=== PATIENT | female | born 1970 | race Caucasian/White ===

== ENCOUNTER 2017-12-31 14:33 | Emergency (ER) | payer OTHER ==
--- NOTE | 2017-12-31 15:45 | UC ---
Throat Pain/Nasal Wes HPI - HPI Summary HPI Summary: 47 y/o male presents to the urgent care c/o RT side sore throat and RT ear pain for the past 3 days. Pain w/ swallowing is 8/10. First day of symptoms she had body aches and cold sweats. Pt denies fever, SOB, cough, URI, chest pain, abdominal pain, N/V/D. Pt has multiple ABX allergies. Pt has no taking anything to alleviate symptoms. - History of Current Complaint Stated Complaint: RIGHT EAR,SORE THROAT Time Seen by Provider: 12/31/17 15:43 Hx Obtained From: Patient Hx Last Menstrual Period: ~2013 ?: No Onset/Duration: Gradual Onset, Lasting Days - 3 days, Still Present, Worse Since - yesterday Severity: Moderate Pain Intensity: 8 Pain Scale Used: 0-10 Numeric Cough: None Associated Signs & Symptoms: Positive: Dysphagia, Other - RT ear pain - Epiglottits Risk Factors Epiglottis Risk Factors: Negative - Allergies/Home Medications Allergies/Adverse Reactions: Allergies Allergy/AdvReac Type Severity Reaction Status Date / Time MS Aspirin [Aspirin] Allergy Swelling Verified 12/31/17 15:46 Of Face,Lips,& Throat, Difficulty Breathing MS Cephalexin [From Keflex] Allergy Difficulty Verified 12/31/17 15:46 Breathing MS Ibuprofen [Ibuprofen] Allergy Swelling Verified 12/31/17 15:46 Of Face,Lips,& Throat, Difficulty Breathing MS Iodinated Diagnostic Allergy Unknown Verified 12/31/17 15:46 Agents Reaction [Iodinated Diagnostic Agents] Details MS Latex [Latex] Allergy Rash Verified 12/31/17 15:46 MS Penicillins [Penicillins] Allergy Unknown Verified 12/31/17 15:46 Reaction Details sulfamethoxazole Allergy Shortness Verified 12/31/17 15:47 [From Bactrim] of Breath trimethoprim [From Bactrim] Allergy Shortness Verified 12/31/17 15:47 of Breath Home Medications: Home Medications Acetaminophen TAB* [Tylenol TAB*] 500 mg PO Q4H PRN 12/31/17 [History Confirmed 12/31/17] Buprenorphine/Naloxone SL TAB* [Suboxone 8-2 mg SL TAB*] 2 tab.sl SL DAILY 12/31 [History Confirmed 12/31/17] PMH/Surg Hx/FS Hx/Imm Hx Previously Healthy: Yes Cardiovascular History: Hypertension Respiratory History: Asthma Neurological History: Migraine Other History Of: Hepatitis C - Surgical History Surgical History: Yes Surgery Procedure, Year, and Place: Hysterectomy, 2013, [place]; C-Sections, 2000 2003 2004; Cholecystectomy, 2000; Appendectomy, 1979 - Family History Known Family History: Positive: Cardiac Disease, Hypertension, Diabetes - Social History Occupation: Employed Full-time Lives: With Family Alcohol Use: None Substance Use Type: None Smoking Status (MU): Never Smoked Tobacco - Immunization History Most Recent Influenza Vaccination: Not the Season Review of Systems Constitutional: Chills, Fatigue, Other - body aches Skin: Negative Eyes: Negative ENT: Sore Throat, Ear Ache - RT ear pain Respiratory: Negative Cardiovascular: Negative Gastrointestinal: Negative Genitourinary: Negative Motor: Negative Neurovascular: Negative Musculoskeletal: Negative Neurological: Negative Psychological: Negative Is Patient Immunocompromised?: No All Other Systems Reviewed And Are Negative: Yes Physical Exam - Summary Physical Exam Summary: VITAL SIGNS: Reviewed. GENERAL: Patient is a well developed and nourished female who is sitting comfortable in the examining table. Patient is not in any acute respiratory distress. HEAD AND FACE: No signs of trauma. No ecchymosis, hematomas or skull depressions. No sinus tenderness. EYES: PERRLA, EOMI x 2, No injected conjunctiva, no nystagmus. No photophobia. EARS: Hearing grossly intact. RT ear canl clear, RT TM injected w/ erythema and yellowish discharge. Left external ear canal clear, LF TM WNL. MOUTH: Positive pharynx with erythema, no exudates, palatal petechiae. B/L tonsillar enlargement with no exudate. Uvula in midline. NECK: Supple, trachea is midline, Positive anterior cervical lymphadenopathy, no JVD, no carotid bruit, no c-spine tenderness, neck with full ROM. No meningeal signs, no Kernig's or brudzinskis signs. CHEST: Symmetric, no tenderness at palpation LUNGS: Clear to auscultation bilaterally. No wheezing or crackles. CVS: Regular rate and rhythm, S1 and S2 present, no murmurs or gallops appreciated. ABDOMEN: Soft, non-tender. No signs of distention. No rebound no guarding, and no masses palpated. Bowel sounds are normal. EXTREMITIES: FROM in all major joints, no edema, no cyanosis or clubbing. NEURO: Alert and oriented x 3. No acute neurological deficits. Speech is normal and follows commands. SKIN: Dry and warm Triage Information Reviewed: Yes Throat Pain/Nasal Course/Dx - Course Course Of Treatment: 47 y/o male presents to the urgent care c/o RT side sore throat and RT ear pain for the past 3 days. Pain w/ swallowing is 8/10. First day of symptoms she had body aches and cold sweats. Pt denies fever, SOB, cough , URI, chest pain, abdominal pain, N/V/D. Pt has multiple ABX allergies. Pt has no taking anything to alleviate symptoms.Hx obtained. Pt w/ pharyngitis and RT Otitis media on examination. Rapid strep ordered: negative. Pt w/ multiple ABx allergies. Pt Rx Z-jason and Viscous lidocaine for her sore throat.Advised to take Tylenol PO to alleviates symptoms of pain and swelling. Advised on hand washing to avoid spreading. Pt advised to rest, eat well and avoid strenuous exercise. If symptoms do not improve or worsen advised to return to the urgent care or f/u with her PCP for further evaluation and treatment. Pt's BP is elevated today advised to decrease salt in diet, monitor BP and f/u with PCP for further management.Pt understood and agreed w/ plan of care. - Differential Dx/Diagnosis Differential Diagnosis/HQI/PQRI: Laryngitis, Mononucleosis, Otitis Media, Pharyngitis, Sinusitis, Tonsillitis, URI Provider Diagnoses: 1- Pharyngitis. 2-Acute Rt otitis Media. 3- Uncontrolled HTN Discharge - Sign-Out/Discharge Documenting (check all that apply): Discharge/Admit/Transfer - D/c home - Discharge Plan Condition: Stable Disposition: HOME Prescriptions: Azithromyxin JASON (NF) [Z-Jason (Zithromax) 250 mg tabs #6] 2 tab PO .TODAY, THEN 1 DAILY #6 tab Lidocaine 2% VISCOUS* [Xylocaine 2% Viscous*] 15 ml SWISH SPIT Q6H PRN #1 btl PRN Reason: Pain Patient Education Materials: Ear Infection (ED), Low-Sodium Diet (ED) Referrals: Cristo Rascon MD [Primary Care Provider] - 3 Days Additional Instructions: 1- Please take the full course of the antibiotic to avoid resistance. 2-Please take Tyelenol PO q6-8hrs prn as instructed after meals to alleviate pain and swelling. Increase fluid intake, eat well, rest and avoid strenuous exercise 3-If symptoms do not improve or worsen please return to the urgent care or f/u with your PCP for further evaluation and treatment. 4-Your BP is elevated today. please decrease salt in your diet, monitor BP and if it continues to be elevated please f/u with your PCP for further management - Billing Disposition and Condition Condition: STABLE Disposition: Home
[2017-12-31 15:46] VITALS: BP 152/86
== END 2017-12-31 16:35 | disposition home or self-care (01) ==
LOC: UCCORT 14:33
DX: J02.9 Acute pharyngitis, unspecified (principal); H66.91 Otitis media, unspecified, right ear; I10 Essential (primary) hypertension; J45.909 Unspecified asthma, uncomplicated; G43.909 Migraine, unspecified, not intractable, without status migrainosus; Z86.19 Personal history of other infectious and parasitic diseases; Z88.1 Allergy status to other antibiotic agents; Z88.0 Allergy status to penicillin; Z88.6 Allergy status to analgesic agent; Z91.041 Radiographic dye allergy status; Z82.49 Family history of ischemic heart disease and other diseases of the circulatory system; Z83.3 Family history of diabetes mellitus
CPT/HCPCS: 87651; 99212; G0463